=== PATIENT | male | born 1960 ===

== ENCOUNTER 2024-03-01 10:59 | Inpatient (IN) | payer OTHER ==
[~2024-03-01] VITALS: Ht 177.8 cm; Wt 88.5 kg
[2024-03-01 12:06] LABS: PH,URINE 5.5 (5.0-8.0); URINE APPEARANCE Clear; URINE BILIRRUBIN Negative (NEGATIVE); URINE BLOOD Negative; URINE COLOR Yellow; URINE GLUCOSE Negative (NEGATIVE); URINE KETONE Negative (NEGATIVE); URINE LEUKOCYTE Negative; URINE NITRATE Negative; URINE PROTEIN Negative (NEGATIVE); URINE UROBILINOGEN 0.2 E.U./dl
[2024-03-01 12:09] LABS: HEMATOCRIT 43.3 % (39.0-48.0); HEMOGLOBIN 14.6 g/dL (13-16.00); MEAN CELL VOLUME 91.5 fL (80.0-100.00); MEAN CORPUSCULAR HEMOGLOBIN 30.8 pg (27.00-32.0); MEAN CORPUSCULAR HGB CONC 33.7 g/dl (32.0-36.0); RED BLOOD COUNT 4.74 M/uL (4.00-6.00)
[2024-03-01 12:10] LABS: URINE EPITHELIAL CELLS 1.9 uL (0.0-38.8)
[2024-03-01 12:16] LABS: URINE BACTERIA 3.7 uL (0.0-1933); URINE RBC 1.6 uL (0.0-20.8); URINE WBC 1.2 uL (0.0-23.2)
[2024-03-01 12:51] LABS: INR 1.02; PARTIAL THROMBOPLASTIN TIME 28.8 SECONDS (22.0-34.0); PROTHROMBIN TIME 11.1 SECONDS (9.0-11.5)
[2024-03-01 12:52] LABS: CALCIUM 9.9 mg/dL (8.5-10.1); CREATININE SERUM 1.02 mg/dL (0.70-1.30); GFR 73.53; POTASSIUM 4.75 mEq/L (3.5-5.1)
[2024-03-01 13:20] LABS: PLATELET COUNT 199 K/uL (150-450)
[2024-03-01] MEDS ORDERED: COZAAR25 MG PO (14:59)
[2024-03-01] MEDS ORDERED: NORVASC2.5 M1 PO (14:59)
[2024-03-01 15:00] VITALS: BP 160/60
[2024-03-01] MEDS ORDERED: ATORVASTATIN CA10 MG PO (15:00)
[2024-03-07] MEDS ORDERED: CEFAZOLIN SODIUM 1,000 MG VIAL ONE ×2 (10:51→18:01)
[2024-03-07] MEDS ORDERED: BUPIVACAINE HCL/MPF 0.5% 30ML VIAL ONE (10:51)
[2024-03-07] MEDS ORDERED: ENOXAPARIN SODIUM 40 MG/0.4 ML SYRINGE SUBCUTANEO ONE (10:51)
[2024-03-07] MEDS ORDERED: HEMOSTATIC MATRIX 1 KIT KIT TOP ONE (12:36)
[2024-03-07] MEDS ORDERED: SURGIFLO APPLICATOR 1 EACH APPL TOP ONE (12:36)
[2024-03-07] MEDS ORDERED: LOSARTAN POTAS100 MG (15:13)
[2024-03-07] MEDS ORDERED: TAMSULOSIN HCL0.4 MG (15:13)
[2024-03-07] MEDS ORDERED: SIMVASTATIN20 MG (15:13)
[2024-03-07] MEDS ORDERED: AMLODIPINE BESYL5 MG (15:13)
[2024-03-07] MEDS ORDERED: SUGAMMADEX SODIUM 200 MG/2 ML VIAL IV ONE (16:24)
[2024-03-07] MEDS ORDERED: OxyCODONE HCL/APAP UD (PERCOCET) PO PRN (17:00)
[2024-03-07] MEDS ORDERED: RINGERS SOLUTION,LACTATED 1,000 ML IV SCH (17:00)
[2024-03-07] MEDS ORDERED: KETOROLAC TROMETHAMINE 30 MG VIAL IV SCH (17:00)
[2024-03-07] MEDS ORDERED: ONDANSETRON HCL 2 MG/ML VIAL IV PRN (17:00)
[2024-03-07] MEDS ORDERED: MORPHINE SULFATE 4 MG/ML VIAL IV ONE ×2 (17:30→18:00)
[2024-03-07] MEDS ORDERED: CEFAZOLIN SODIUM 1,000 MG VIAL IV SCH (18:00)
[2024-03-07 18:50] VITALS: BP 170/85; O2SAT 95
[2024-03-07] MEDS ORDERED: FAMOTIDINE/PF 20 MG/2 ML VIAL IV SCH (21:00)
[2024-03-07 23:56] VITALS: BP 161/82; O2SAT 96
[2024-03-08] MEDS ORDERED: GABAPENTIN 300 MG CAPSULE PO SCH (01:00)
[2024-03-08 06:05] LABS: HEMATOCRIT 37.9 % (39.0-48.0); HEMOGLOBIN 12.9 g/dL (13-16.00); MEAN CELL VOLUME 90.5 fL (80.0-100.00); MEAN CORPUSCULAR HEMOGLOBIN 30.8 pg (27.00-32.0); PLATELET COUNT 200 K/uL (150-450); RED BLOOD COUNT 4.19 M/uL (4.00-6.00); RED CELL DISTRIBUTION WIDTH 13.3 % (11.5-14.5)
[2024-03-08 06:40] LABS: ALBUMIN 3.1 gm/dL (3.4-5.0); CALCIUM 8.5 mg/dL (8.5-10.1); CREATININE SERUM 1.13 mg/dL (0.70-1.30); GFR 65.33; POTASSIUM 4.42 mEq/L (3.5-5.1)
[2024-03-08 08:39] VITALS: BP 160/80; O2SAT 97
[2024-03-08] MEDS ORDERED: ENOXAPARIN SODIUM 40 MG/0.4 ML SYRINGE SUBCUTANEO SCH (09:00)
[2024-03-08] MEDS ORDERED: AMLODIPINE BESYLATE 5 MG TABLET PO SCH (09:00)
[2024-03-08] MEDS ORDERED: LOSARTAN POTASSIUM 100 MG TABLET PO SCH (09:00)
[2024-03-08] MEDS ORDERED: POLYETHYLENE GLYCOL 3350 17 GM BLIST.PACK PO SCH (17:00)
== END 2024-03-08 13:22 | disposition home or self-care (01) | DRG 708 ==
LOC: O/R 03-07 05:18 → SURH 03-07 07:00 → SURG 03-07 17:22
PROVIDERS: ADMIT Urology; ATTEND Urology
PROC: 07BC4ZZ Excision of Pelvis Lymphatic, Percutaneous Endoscopic Approach (ICD-10-PCS; 2024-03-07)
PROC: 8E0W4CZ Robotic Assisted Procedure of Trunk Region, Percutaneous Endoscopic Approach (ICD-10-PCS; 2024-03-07)
PROC: 0VT04ZZ Resection of Prostate, Percutaneous Endoscopic Approach (ICD-10-PCS; principal; 2024-03-07 07:00)
DX: C61 Malignant neoplasm of prostate (principal); Z20.822 Contact with and (suspected) exposure to COVID-19
CPT/HCPCS: 55866; 38571; S2900